=== PATIENT | female | born 1960 | race Caucasian/White ===

== ENCOUNTER 2019-08-22 17:58 | Emergency (ER) | payer OTHER ==
--- NOTE | 2019-08-22 20:04 | RAD ---
LEFT HAND THREE VIEW: 08/22/19 HISTORY: Pain. COMPARISON: None. FINDINGS: No acute displaced fracture or malalignment. Extensive debris on the cassette. The wrist is intact. Only on the lateral view is that there appears to be a cortical irregularity of the lateral aspect of the distal phalanx diaphysis of the thumb. IMPRESSION: 1. Likely artifactual cortical irregularity of the lateral aspect distal phalanx of the thumb co rtex. Dedicated thumb radiograph is recommended if there is focal tenderness. 2. No other acute abnormality of the hand. POS: HOME
== END 2019-08-22 19:38 | disposition home or self-care (01) ==
LOC: MADERS 17:58
DX: S60.222A Contusion of left hand, initial encounter (principal); S00.83XA Contusion of other part of head, initial encounter; C34.90 Malignant neoplasm of unspecified part of unspecified bronchus or lung; I48.91 Unspecified atrial fibrillation; E05.90 Thyrotoxicosis, unspecified without thyrotoxic crisis or storm; F17.210 Nicotine dependence, cigarettes, uncomplicated; Z79.899 Other long term (current) drug therapy; W10.9XXA Fall (on) (from) unspecified stairs and steps, initial encounter